=== PATIENT | male | born 1950 | race Caucasian/White ===

== ENCOUNTER 2021-12-25 10:58 | Emergency (ER) | payer OTHER ==
[~2021-12-25] VITALS: Ht 177.8 cm; Wt 81.0 kg
[2021-12-25] VITALS (9 sets, daily range): BP systolic 127–155; BP diastolic 89–107
[2021-12-25] MEDS ORDERED: CYCLOBENZAPRINE10 MG PO (13:06)
[2021-12-25] MEDS ORDERED: LORTAB 1010 MG PO (13:06)
== END 2021-12-25 13:30 | disposition home or self-care (01) | DRG 552 ==
LOC: ED 10:58
DX: M47.812 Spondylosis without myelopathy or radiculopathy, cervical region (principal); M19.012 Primary osteoarthritis, left shoulder; I25.2 Old myocardial infarction

== ENCOUNTER 2023-12-13 06:13 | Emergency (ER) | payer OTHER ==
[~2023-12-13] VITALS: Ht 177.8 cm; Wt 83.0 kg
[~2023-12-13 06:13] MED LIST: CYCLOBENZAPRINE10 MG PO; LORTAB 1010 MG PO
[2023-12-13] MEDS ORDERED: methylPREDNISolone SODIUM SUCC 125 MG/2 ML SDV IV STA (06:31)
[2023-12-13] MEDS ORDERED: FAMOTIDINE 10MG/ML 2ML SDV IV STA (06:31)
[2023-12-13] MEDS ORDERED: DiphenhydrAMINE HCL 50 MG/ML SDV IV STA (06:31)
[2023-12-13] MEDS ORDERED: KETOROLAC TROMETHAMINE 30 MG/ML SDV IV ONE (06:35)
[2023-12-13] MEDS ORDERED: ACETAMINOPHEN 500 MG TAB PO ONE (06:35)
[2023-12-13] MEDS ORDERED: MEDDOSEPAK PO (06:45)
[2023-12-13 07:58] VITALS: BP 148/84
== END 2023-12-13 07:59 | disposition home or self-care (01) | DRG 918 ==
LOC: ED 06:13
DX: T63.461A Toxic effect of venom of wasps, accidental (unintentional), initial encounter (principal); I10 Essential (primary) hypertension; I25.2 Old myocardial infarction